=== PATIENT | male | born 1945 | race Caucasian/White ===

== ENCOUNTER 2018-02-01 14:39 | Outpatient (CLI) | payer MEDICARE ==
[2018-02-01 15:31] LABS: Blood Urea Nitrogen 12 mg/dL (9-20)
--- NOTE | 2018-02-01 17:26 | Cat Scan Report ---
FINAL REPORT PROCEDURE: CT ANGIO ABD/FEMORAL ABD AORTA TECHNIQUE: Computerized axial tomographic angiography of the aortoiliac system with bilateral lower extremity runoff was performed after the IV injection of nonionic iodinated contrast including image processing. The image data was postprocessed using 2-dimensional multiplanar reformatted (MPR) and 3-dimensional (MIP and/or volume rendered) techniques. HISTORY: ABDOMINAL AORTIC ANEURYSM,WITHOUT RUPTURE COMPARISON: No prior studies are available for comparison. FINDINGS: Pulmonary emphysema lower lung zones. Diffuse fatty infiltration of liver. Gallbladder unremarkable. Moderate hiatal hernia. Lobular spleen. Diffuse pancreatic atrophy. Adrenal gland without mass. Low attenuated cystic change in the right mid to lower anterior kidney with smaller cysts also present. Normal appendix. Small right inguinal herniation fat. Mild diffuse atherosclerosis aorta. There is mild stenosis of the celiac and SMA axes with atherosclerotic plaques. Mild stenosis right renal artery. No significant stenosis on the left renal artery. There is a prominent infra renal abdominal aortic aneurysm measuring 4.9 x 4.7 centimeters measuring 6.5 centimeters in length. The common iliac arteries measure 14 millimeters on the right and 16 millimeters on the left. Scattered atherosclerosis common and superficial femoral arteries. Fairly strong runoff femoral arteries bilaterally. Atherosclerosis of the right anterior tibial artery with patency and with thready flow in the foot. There is similar appearance on the left side. Three vessels below the knees bilaterally with predominant atherosclerotic disease of the anterior tibial arteries and posterior tibial artery contribution on the left but not well seen on the right. Atherosclerotic dorsalis pedis artery with slightly greater flow on the left than right. Small vessel disease in the ankle and feet are better evaluated with angiography. IMPRESSION: Infrarenal abdominal aortic aneurysm. Small vessel trifurcation disease distally. Consider direct angiography to further evaluate.
== END 2018-02-01 14:40 | disposition home or self-care (01) ==
LOC: CT 14:39
PROVIDERS: ATTEND Radiology Diagnostic Radiology
DX: I71.4 Abdominal aortic aneurysm, without rupture (principal); I70.293 Other atherosclerosis of native arteries of extremities, bilateral legs; E78.00 Pure hypercholesterolemia, unspecified; K76.0 Fatty (change of) liver, not elsewhere classified; K44.9 Diaphragmatic hernia without obstruction or gangrene; K86.89 Other specified diseases of pancreas; I70.0 Atherosclerosis of aorta; K40.90 Unilateral inguinal hernia, without obstruction or gangrene, not specified as recurrent; N28.1 Cyst of kidney, acquired; I70.1 Atherosclerosis of renal artery
CPT/HCPCS: 36415; 75635; 82565; 84520; Q9967

== ENCOUNTER → 2018-07-05 | Outpatient (CLI) | payer MEDICARE ==
--- NOTE | 2018-07-05 16:37 | Cat Scan Report ---
FINAL REPORT EXAM: CT ANGIO ABDOMEN PELVIS HISTORY: HYPERCHOLESTEROLEMIA, ABDOMINAL AORTIC ANEURYSM TECHNIQUE: Spiral CTA of the abdomen and pelvis after the uneventful administration of IV contrast. Multiplanar reformations. PRIORS: 01 February 2018. FINDINGS: Arteriogram: Status post aortic and bilateral iliac stent graft repair of previously noted AAA, with apparent 2.5 cm gap between the aortic and iliac stent components. Some apparent filling of aneurysmal sac from probable lumbar arteries posteriorly indicative of type II endoleak. No new aneurysmal dilatation, aortic dissection, or significant stenosis. Celiac axis, SMA and renal arteries demonstrate normal enhancement without significant stenosis. No retroperitoneal hematoma. Abdomen: Visualized lung bases grossly clear. Small-moderate hiatal hernia again noted. No radiopaque gallstones. Liver without significant abnormality. Spleen without significant abnormality. Pancreas without significant abnormality. Right renal cyst measures approximately 2.7 cm again noted. Remainder of kidneys grossly unremarkable. Adrenal glands without significant abnormality. Pelvis: Bowel grossly unremarkable, with mild diverticular change in the sigmoid colon. Appendix within normal limits. No significant free peritoneal fluid, discrete abscess or apparent adenopathy. Mild, nonspecific prostatic enlargement. Mild dextroconvex curvature of upper lumbar spine and diffuse degenerative change in thoracolumbar spine. Postsurgical change of hernia repair in left inguinal region. IMPRESSION: 1. Status post stent graft repair of AAA, with apparent type 2 endoleak as reported. Clinical correlation and followup suggested. 2. No other acute findings. Please see above for additional details.
== END | disposition home or self-care (01) ==
LOC: CT 09:30
PROVIDERS: ATTEND Surgery Vascular Surgery
DX: M47.895 Other spondylosis, thoracolumbar region (principal); E78.00 Pure hypercholesterolemia, unspecified; I70.293 Other atherosclerosis of native arteries of extremities, bilateral legs; I71.4 Abdominal aortic aneurysm, without rupture
CPT/HCPCS: 74174; Q9967

== ENCOUNTER 2018-12-28 06:05 | Day surgery (SDC) | payer MEDICARE ==
[~2018-12-28 06:05] MED LIST: ANCEF/STERILE WATER 2 GM/20 ML 2 GM/20 ML SYRINGE IV NR
[2018-12-28 06:51] LABS: Basophils # (Auto) 0.1 K/mm3 (0.0-0.1); Eosinophils # (Auto) 0.2 K/mm3 (0.0-0.4); Eosinophils % (Auto) 3.2 % (0.0-4.3); Hematocrit 39.6 % (35.5-45.6); Hemoglobin 13.3 gm/dl (11.8-15.2); Lymphocytes # (Auto) 1.6 K/mm3 (1.2-5.4); Lymphocytes % (Auto) 27.8 % (13.4-35.0); Mean Corpuscular HGB Conc 34 % (32-34); Mean Corpuscular Volume 94 fl (84-94); Monocytes # (Auto) 0.6 K/mm3 (0.0-0.8); Monocytes % (Auto) 9.5 % (0.0-7.3); Platelet Count 204 K/mm3 (140-440); Red Blood Count 4.23 M/mm3 (3.65-5.03); Red Cell Distribution Width 14.3 % (13.2-15.2)
[2018-12-28 07:01] LABS: Partial Thromboplastin Time 26.8 Sec. (24.2-36.6)
[2018-12-28 07:07] LABS: BUN/Creatinine Ratio 19; Blood Urea Nitrogen 13 mg/dL (9-20); Calcium 8.3 mg/dL (8.4-10.2); Hemolysis Index 16
[2018-12-28] MEDS: NACL 0.9% 1000 ML 1,000 ML IV SCH ×2 (07:24→09:15)
[2018-12-28] MEDS ORDERED: HEPARIN/NS 5000 UNIT/500ML(CATH LAB) 1,000 ML IR ONE (08:13)
[2018-12-28] MEDS ORDERED: XYLOCAINE 2% INFILTRATI ONE (08:13)
[2018-12-28] MEDS ORDERED: GELFOAM TP ONE (08:18)
[2018-12-28] MEDS ORDERED: ANCEF/STERILE WATER 2 GM/20 ML 2 GM/20 ML SYRINGE IV ONE (09:05)
[2018-12-28] MEDS: VERSED ONE ×3 (09:17→11:03)
[2018-12-28] MEDS: SUBLIMAZE ONE ×3 (09:17→11:03)
[2018-12-28] MEDS: HEPARIN 10,000 UNITS/10 ML ONE ×5 (09:31→10:50)
[2018-12-28] MEDS ORDERED: NITROGLYCERIN SYRINGE 6 ML ONE (09:38)
[2018-12-28] MEDS ORDERED: ATROPINE 0.1% (CARDIAC) ONE (09:47)
[2018-12-28] MEDS ORDERED: HEPARIN/NS 5000 UNIT/500ML(CATH LAB) 500 ML IR ONE (10:26)
[2018-12-28] MEDS ORDERED: VERSED ONE (11:09)
[2018-12-28] MEDS ORDERED: SUBLIMAZE ONE (11:09)
--- NOTE | 2018-12-28 11:40 | Short Stay Summary ---
Short Stay Documentation Date of service: 12/28/18 Narrative H&P: 73 year old with abdominal aortic aneurysm repair with endoleak who presents for treatment of endoleak. - History Principal diagnosis: Endoleak type 2 H&P: obtained from office - Allergies and Medications Current Medications: Allergies No Known Allergies Allergy (Verified 12/28/18 07:50) Home Medications Medication Instructions Recorded Confirmed Last Taken Type [place]-3 Fatty Acids/Fish Oil [Fish 1 each PO DAILY 01/30/15 12/28/18 12/27/18 History Oil] Simvastatin 20 mg PO QHS 01/30/15 12/28/18 12/27/18 21:00 History Clopidogrel [Plavix] 75 mg PO QDAY #30 tablet 03/22/18 12/28/18 12/25/18 Rx Aspirin [Lo-Dose Aspirin EC] 81 mg PO DAILY 12/28/18 12/28/18 12/27/18 History Active Medications Cefazolin Sodium (Ancef/Sterile Water 2 Gm/20 Ml) 2 gm in 20 mls @ 80 mls/hr IV PREOP NR; Protocol Stop: 12/28/18 23:59 Sodium Chloride (Nacl 0.9% 1000 Ml) 1,000 mls @ 42 mls/hr IV DIRECT JOSHUA Last Admin: 12/28/18 09:15 Dose: 42 mls/hr Documented by: - Physical exam General appearance: no acute distress Lungs: Normal air movement Heart: Regular rate Gastrointestinal: normal Extremities: pulses intact, normal temperature, normal color - Brief post op/procedure progress note Date of procedure: 12/28/18 Pre-op diagnosis: Type 2 endoleak Post-op diagnosis: same Procedure: 1. Ultrasound-guided access of the right common femoral artery. 2. Angiography of the right lower extremity. 3. Selection of the SMA with angiography. 4. Selection of the terminal branch of the SMA with angiography. 5. Selection of the first branch of the SMA providing flow into the jejunum 6. Selection of the middle colic artery with angiography 7. Selection of the marginal artery of [place] with angiography 8. Selection of the DEANA with angiography 9. Selection of the aneurysm sac with angiography 10. Coil embolization of the aneurysm sac with multiple Concerto coils (10 mm x 30 cm ; 12 mm x 30 mm ; 20 mm x 50 mm x3) 11. Coil embolization of the DEANA with 6 mm x 20 cm and 5 mm x 20 cm Concerto coils 12. Repeat SMA angiography 13. Closure of the right common femoral artery with 6 Fr proglide Surgeon: TONIE HANCOCK Estimated blood loss: minimal Condition: stable - Hospital course Hospital course: Ready for discharge in 3 hrs - Disposition Condition at discharge: Stable Disposition: [id number] TO HOME OR SELFCARE - Discharge Diagnoses (1) Endoleak post (EVAR) endovascular aneurysm repair Status: Acute Short Stay Discharge Plan Activity: advance as tolerated Weight Bearing Status: Weight Bear as Tolerated (do not lift more than 10 lbs for 1 week, do not walk up stairs if possible for 1 week, remove pressure dressing 12/29/18 in am) Diet: regular Wound: keep clean and dry Follow up with: SHARDA QUIROZ MD [Primary Care Provider] - 7 Days
--- NOTE | 2018-12-28 11:47 | Operative Report ---
Operative Report Operative Report: EXAM: 1. Ultrasound-guided access of the right common femoral artery. 2. Angiography of the right lower extremity. 3. Selection of the SMA with angiography. 4. Selection of the terminal branch of the SMA with angiography. 5. Selection of the first branch of the SMA providing flow into the jejunum 6. Selection of the middle colic artery with angiography 7. Selection of the marginal artery of [place] with angiography 8. Selection of the DEANA with angiography 9. Selection of the aneurysm sac with angiography 10. Coil embolization of the aneurysm sac with multiple Concerto coils (10 mm x 30 cm ; 12 mm x 30 mm ; 20 mm x 50 mm x3) 11. Coil embolization of the DEANA with Concerto coils (6 mm x 20 cm and 5 mm x 20 cm) 12. Repeat SMA angiography 13. Closure of the right common femoral artery with 6 Fr proglide DATE: 12/28/18 LPN HOME HEALTH: TONIE HANCOCK MD INDICATION: 73-year-old male with abdominal aortic aneurysm status post endovascular aortic repair with persistent endoleak 6 months after her original procedure with large flow from the DEANA. Plan for coil embolization of the sac and DEANA. Risks, benefits, and alternatives discussed with family. MEDICATIONS: Please see nursing report for full details. DEVICES: Aneurysm sac: Concerto coils (10 mm x 30 cm ; 12 mm x 30 mm ; 20 mm x 50 mm x3) DEANA: Concerto coils (6 mm x 20 cm and 5 mm x 20 cm) CONTRAST: 90 mL's of nonionic contrast PROCEDURE: The risks, benefits, and alternatives were discussed the patient and his family; written informed consent was obtained. The groins were prepped and draped in a sterile fashion. Ultrasound was used to evaluate the right common femoral artery which was patent. Under direct ultrasound guidance, the right common femoral artery was accessed with a 21- gauge micropuncture needle. 0.018 inch wire was passed into the aorta. Needle was exchanged for transitional dilator. Wire was exchanged for 0.035 inch wire. Transitional dilator was exchanged for a 5 Dutch sheath. Digital subtraction angiography was performed from the sheath demonstrating appropriate puncture, above the bifurcation and below the inferior epigastric artery. The right external iliac artery, common femoral artery, proximal superficial femoral artery, and profunda femoral artery were patent. The SMA was selected with a SOS2 catheter. Digital subtraction angiography was performed of ensuring patency of the SMA with a large marginal artery of [place] which supplied the DEANA with a large type II endoleak filling from the DEANA. The patient was heparinized. The SMA was then selected with a C2 glide catheter. The catheter was used to select the terminal branch of the SMA. Digital subtraction angiography was performed confirming position in the SMA. Over a Hagan wire, the sheath was exchanged for 6 Dutch 45 cm [place] destination positioned in the proximal SMA. There is a small amount of spasm from the Hagan wire which was treated with nitroglycerin and resolved the spasm. The branch that provided flow into the middle colic artery had 4 branches and arose at a right angle from the main SMA. The branch was catheterized with a C2 glide catheter and digital subtraction angiography was performed further demonstrating this branch. Numerous catheters, microcatheters, and wires were used and ultimately, a C2 glide catheter and a J-tipped direction microcatheter were used to select the middle colic artery and the marginal artery of [place]. The C2 glide catheter was used to select the marginal artery of [place] over the microcatheter and the microcatheter was then advanced into the DEANA. Digital subtraction angiography was performed confirming position in the DEANA. The aneurysm sac was then selected from the DEANA. Gentle angiography was performed in the aneurysm sac confirming position. At this point, numerous coils were used to coil much of the aneurysm sac where there was an endoleak. The microcatheter was then withdrawn to the DEANA and this was coiled with 2 coils. Digital subtraction angiography was performed to the microcatheter confirming stasis into the sac compatible with treatment of the type II endoleak. At this point the base catheter and microcatheter removed. Digital subtraction angiography was performed to the sheath confirming stasis of the type II endole ak from the DEANA. Sheath was then removed and the sheath was exchanged for 6 Dutch Pro-glide which was used to close the arteriotomy achieving a mediated hemostasis. Sterile dressing and pressure bandage applied. Patient tolerated the procedure well. No immediate postprocedural complication. FINDINGS: Please see procedure note above. IMPRESSION: 1. Successful coil embolization of the excluded infrarenal aneurysmal sac of the abdominal aorta. 2. Successful coil embolization of the DEANA. 3. Successful third order selection of the DEANA 4. Successful angiography of the SMA and right lower extremity 5. Successful ultrasound guided access and closure device mediated closure of the right common femoral artery.
[2018-12-28 14:35] VITALS: BP 135/76
== END 2018-12-28 14:35 | disposition home or self-care (01) ==
LOC: CATHLABREC 06:05
PROVIDERS: ATTEND Radiology Diagnostic Radiology
DX: I71.4 Abdominal aortic aneurysm, without rupture (principal); E78.00 Pure hypercholesterolemia, unspecified; M19.90 Unspecified osteoarthritis, unspecified site; Z98.890 Other specified postprocedural states; Z79.82 Long term (current) use of aspirin; Z79.899 Other long term (current) drug therapy; Z79.01 Long term (current) use of anticoagulants; Z72.89 Other problems related to lifestyle
CPT/HCPCS: 36245; 36247; 36415; 37242; 75726; 75774; 76937; 80048; 85025; 85610; 85730; 99156; 99157; C1751; C1760; C1769; C1887; J0690; J1644; J2250; J3010; J7030; 36248; A4649; J0461; Q9967